=== PATIENT | female | born 1990 | race African-American/Black ===

== ENCOUNTER 2024-05-05 06:45 | Emergency (ER) | payer BC ==
[2024-05-05] MEDS ORDERED: Ibuprofen 800 MG TAB ONE (07:20)
== END 2024-05-05 08:19 | disposition home or self-care (01) ==
LOC: CSHERS 06:45
DX: J10.1 Influenza due to other identified influenza virus with other respiratory manifestations (principal)
CPT/HCPCS: 87081; 87428; 87430; 99284